=== PATIENT | male | born 2000 | race African-American/Black ===

== ENCOUNTER → 2020-02-23 | Emergency (ER) | payer OTHER | END | disposition home or self-care (01) | LOC: M ED 14:10 | DX: Z11.59 Encounter for screening for other viral diseases (principal); Z20.828 Contact with and (suspected) exposure to other viral communicable diseases; R51 Headache | CPT/HCPCS: 99283; U0002 ==

== ENCOUNTER 2022-08-25 08:15 | Emergency (ER) | payer OTHER ==
[~2022-08-25] VITALS: Ht 177.8 cm; Wt 89.3 kg
[2022-08-25] MEDS ORDERED: LIDOCAINE W/EPINEPHRINE 1% 20ML VIAL SC ONE (08:35)
[2022-08-25] MEDS ORDERED: DOXYCYCLINE HYCLATE 100MG TABLET PO ONE (08:40)
[2022-08-25] MEDS ORDERED: DOXY-443 PO (09:04)
[2022-08-25 09:23] VITALS: BP 123/65
== END 2022-08-25 09:26 | disposition home or self-care (01) ==
LOC: M ED 08:15
DX: L02.01 Cutaneous abscess of face (principal); Z79.2 Long term (current) use of antibiotics

== ENCOUNTER 2022-10-11 10:41 | Emergency (ER) | payer OTHER ==
[~2022-10-11] VITALS: Ht 182.9 cm; Wt 87.4 kg
[~2022-10-11 10:41] MED LIST: DOXY-443 PO
[2022-10-11] MEDS ORDERED: METH-1165 PO (12:31)
[2022-10-11] MEDS ORDERED: MEDR4PAK PO (12:31)
[2022-10-11 12:48] VITALS: BP 121/65
== END 2022-10-11 12:52 | disposition home or self-care (01) ==
LOC: M ED 10:41
DX: M51.37 Other intervertebral disc degeneration, lumbosacral region (principal); M54.32 Sciatica, left side

== ENCOUNTER 2022-10-17 06:35 | Emergency (ER) | payer OTHER ==
[~2022-10-17] VITALS: Ht 180.3 cm; Wt 86.9 kg
[~2022-10-17 06:35] MED LIST changes: +MEDR4PAK PO; +METH-1165 PO
[2022-10-17] MEDS ORDERED: LIDOCAINE 5% (LIDODERM) PATCH TD ONE (07:20)
[2022-10-17] MEDS ORDERED: KETOROLAC 60MG 2ML VIAL IM ONE (07:20)
[2022-10-17] MEDS ORDERED: LIDO5DIS41 TOP (07:22)
[2022-10-17] MEDS ORDERED: BACL10TA2 PO (07:22)
[2022-10-17] MEDS ORDERED: OMEP-173 PO (07:29)
[2022-10-17 07:37] VITALS: BP 132/76
== END 2022-10-17 07:40 | disposition home or self-care (01) ==
LOC: M ED 06:35
DX: M54.9 Dorsalgia, unspecified (principal)
CPT/HCPCS: 96372; 99283; J1885

== ENCOUNTER 2022-11-12 09:07 | Emergency (ER) | payer OTHER ==
[~2022-11-12] VITALS: Ht 182.9 cm; Wt 83.6 kg
[~2022-11-12 09:07] MED LIST changes: +BACL10TA2 PO; +LIDO5DIS41 TOP; +OMEP-173 PO
[2022-11-12] MEDS ORDERED: KETOROLAC 30 MG/ML 1ML VIAL IM ONE (13:40)
[2022-11-12 14:02] VITALS: BP 133/81
== END 2022-11-12 14:03 | disposition home or self-care (01) ==
LOC: M ED 09:07
DX: M54.6 Pain in thoracic spine (principal); G43.909 Migraine, unspecified, not intractable, without status migrainosus; F41.9 Anxiety disorder, unspecified; F32.A Depression, unspecified; Z79.83 Long term (current) use of bisphosphonates; Z79.891 Long term (current) use of opiate analgesic; Z79.899 Other long term (current) drug therapy
CPT/HCPCS: 96372; 99283; J1885

== ENCOUNTER 2023-07-02 14:54 | Emergency (ER) | payer OTHER ==
[~2023-07-02] VITALS: Ht 180.3 cm; Wt 86.4 kg
[2023-07-02 16:58] LABS: BASO % 0.7 % (0.0-1.0); EOS # 0.1 10^3/uL (0.0-0.5); EOS % 2.2 % (0.0-3.0); HEMATOCRIT 44.6 % (42.0-52.0); HEMOGLOBIN 14.4 g/dl (13.5-17.5); LYMPH # 1.6 10^3/uL (1.5-5.0); MEAN CORPUSCULAR HEMOGLOBIN 25.4 pg (27.0-33.0); MEAN CORPUSCULAR HGB CONC 32.3 g/dl (32.0-36.5); MEAN CORPUSCULAR VOLUME 78.5 fl (80.0-96.0); MONO # 0.4 10^3/uL (0.0-0.8); MONO % 8.1 % (2.0-8.0); NEUTROPHILS # 3.2 10^3/uL (1.5-8.5); NEUTROPHILS % 58.8 % (36.0-66.0); PLATELET COUNT, AUTOMATED 165 10^3/uL (150-450); RED BLOOD COUNT 5.68 10^6/uL (4.30-6.10); WHITE BLOOD COUNT 5.4 10^3/uL (4.0-10.0)
[2023-07-02 17:20] LABS: LIPASE 27 U/L (12-53)
[2023-07-02 17:22] LABS: ALBUMIN 3.9 G/DL (3.2-5.2); ALKALINE PHOSPHATASE 82 U/L (46-116); ALT/SGPT 27 U/L (7.0-40); AST/SGOT 16 U/L (<34); BILIRUBIN,DIRECT 0.2 MG/DL (<0.4); BILIRUBIN,TOTAL 0.7 MG/DL (0.3-1.2); BLOOD UREA NITROGEN 11 MG/DL (9-23); CALCIUM LEVEL 9.3 MG/DL (8.5-10.1); CARBON DIOXIDE LEVEL 28 MMOL/L (20-31); CHLORIDE LEVEL 105 MMOL/L (98-107); GLOMERULAR FILTRATION RATE > 60.0 (>60); GLUCOSE, FASTING 89 MG/DL (60-100); POTASSIUM SERUM 4.3 MMOL/L (3.5-5.1); SODIUM LEVEL 138 MMOL/L (136-145); TOTAL PROTEIN 6.9 G/DL (5.7-8.2)
[2023-07-02] MEDS ORDERED: NS 1,000 ML IV ONE (18:55)
[2023-07-02] MEDS ORDERED: KETOROLAC 30 MG/ML 1ML VIAL IV ONE (18:55)
[2023-07-02] MEDS ORDERED: ISOVUE-370 76% 100ML VIAL As Ordered ONE (18:59)
[2023-07-02] MEDS ORDERED: ACETAMINOPHEN *IV* 1,000 MG in IV 1 EA IV ONE (20:30)
[2023-07-02] MEDS ORDERED: MAGNESIUM CITRATE 300ML BTL PO ONE (21:15)
[2023-07-02 21:20] VITALS: BP 135/86; TEMP 98.3; O2SAT 100
== END 2023-07-02 21:30 | disposition home or self-care (01) ==
LOC: M ED 14:54
DX: K59.00 Constipation, unspecified (principal); Z79.83 Long term (current) use of bisphosphonates; Z79.899 Other long term (current) drug therapy; Z79.891 Long term (current) use of opiate analgesic
CPT/HCPCS: 74177; 80048; 80076; 83690; 85025; 96361; 96365; 96375; 99284; J0131; J1885; Q9967

== ENCOUNTER → 2023-07-31 | Outpatient (CLI) | payer OTHER ==
[~2023-07-31] MED LIST changes: +AJOV225I SC; +AMIT10TA7 PO; +IBUP1TAB7 PO; +LIDO5DIS41 TD; +MAGN400T2 PO; +VITA100093 PO
== END ==
LOC: M SLEEP 20:00
PROVIDERS: ATTEND Nurse Practitioner Family
DX: R40.0 Somnolence (principal)

== ENCOUNTER 2023-08-06 09:25 | Day surgery (SDC) | payer OTHER ==
[~2023-08-06] VITALS: Ht 180.3 cm; Wt 86.2 kg
[~2023-08-06 09:25] MED LIST changes: +NS 1,000 ML IV ONE; +propofoL 200 MG/20 ML VIAL As Ordered ONE
[2023-08-06] MEDS ORDERED: propofoL 200 MG/20 ML VIAL As Ordered ONE ×2 (09:33→11:06)
[2023-08-06] MEDS ORDERED: LIDOCAINE 2% 100MG/5ML SDV (FOR ANES.) As Ordered ONE (10:23)
[2023-08-06] MEDS ORDERED: GLYCOPYRROLATE INJ 0.2 MG/ML 2 ML VIAL As Ordered ONE (10:23)
[2023-08-06 11:13] VITALS: TEMP 99.3
[2023-08-06 11:30] VITALS: BP 142/63; O2SAT 96
== END 2023-08-06 12:10 | disposition home or self-care (01) ==
LOC: M OPP 09:25
PROVIDERS: ATTEND Internal Medicine Gastroenterology
DX: K64.8 Other hemorrhoids (principal); K92.1 Melena; R19.4 Change in bowel habit; G47.9 Sleep disorder, unspecified; Z79.4 Long term (current) use of insulin; Z79.2 Long term (current) use of antibiotics; Z79.899 Other long term (current) drug therapy